=== PATIENT | female | born 1970 | race Caucasian/White ===

== ENCOUNTER 2017-11-27 19:20 | Emergency (ER) | payer OTHER ==
[~2017-11-27] VITALS: Ht 157.5 cm; Wt 108.9 kg
[~2017-11-27 19:20] MED LIST: CIPRO500 MG PO; CIPROFLOXACIN500 M3 OR; CIPROFLOXACIN500 M3 PO; CLONAZEPAM 0.50.5 M1 PO; DAZIDOX10 MG PO; FLAGYL500 MG PO; LEXAPRO20 MG PO; METFORMIN; METFORMIN HCL500 MG PO; OMEPRAZOLE; PRILOSEC20 MG PO; TRAMADOL 50 MG50 MG PO; VICOPROFEN 2001 EACH PO; ZOFRAN4 MG PO; ZYRTEC10 M2 PO
[2017-11-27] MEDS ORDERED: ZYRTEC10 M5 (20:16)
[2017-11-27 20:44] LABS: ABSOLUTE BASOPHILS 0.1 thou/uL (0.0-0.2); ABSOLUTE LYMPHOCYTES 1.8 thou/uL (0.8-5.3); ABSOLUTE NEUTROPHILS 14.4 thou/uL (1.6-8.1); BASOPHILS 0.7 %; EOSINOPHILS 0.1 %; HEMATOCRIT 35.7 % (37.0-47.0); HEMOGLOBIN 11.5 gm/dL (12.0-15.0); LYMPHOCYTES 10.1 %; MCH 27.7 pg (26.0-34.0); MCHC 32.1 g/dL (28.0-37.0); MCV 86.3 fL (80.0-100.0); MONOCYTES 5.9 %; MPV 6.6 fl. (7.2-11.1); NUCLEATED RBCS 0 /100WBC; PLATELET COUNT* 451 thou/uL (150-400); POLYS 83.2 %; RBC 4.14 mil/uL (4.20-5.00); RDW-CV 15.4 % (10.5-14.5); WBC 17.4 thou/uL (4.0-11.0)
[2017-11-27 20:57] LABS: CALCIUM 9.1 mg/dL (8.5-10.1); CREATININE 0.8 mg/dL (0.6-1.3); POTASSIUM 3.9 mmol/L (3.5-5.1)
[2017-11-27 20:58] LABS: URINE BILIRUBIN NEGATIVE (Negative); URINE BLOOD 3+ (Negative); URINE CLARITY CLEAR; URINE COLOR YELLOW; URINE GLUCOSE-RANDOM NEGATIVE (Negative); URINE KETONES 2+ (Negative); URINE LEUKOCYTES-REFLEX 1+ (Negative); URINE NITRITE-REFLEX NEGATIVE (Negative); URINE PROTEIN TRACE (Negative); URINE UROBILINOGEN 0.2 E.U./dl (0.2-1.0)
[2017-11-27 21:01] LABS: ALBUMIN 3.4 g/dL (3.4-5.0); TOTAL BILIRUBIN 0.3 mg/dL (<0.1-1.0); TOTAL PROTEIN 7.9 g/dL (6.4-8.2)
[2017-11-27 21:17] LABS: SQUAMOUS >10 Many /LPF (0-3)
[2017-11-27 21:18] LABS: MUCUS 0-3 Light strn/LPF (None Seen)
[2017-11-27 21:19] LABS: URINE WBC-REFLEX 6-15 Few /HPF (0-5)
[2017-11-27 21:20] LABS: CASTS None Seen /LPF (None Seen); CRYSTALS None Seen /LPF (None Seen); URINE RBC 3-10 Few /HPF (0-2)
[2017-11-27] MEDS ORDERED: FLAGYL500 MG PO (22:23)
[2017-11-27] MEDS ORDERED: CIPRO500 M1 PO (22:23)
[2017-11-27] MEDS ORDERED: TRAMADOL 50 MG50 MG PO (22:23)
[2017-11-27] MEDS ORDERED: PHENERGAN 25 MG25 M1 PO (22:29)
[2017-11-27 22:47] VITALS: BP 148/67
== END 2017-11-27 22:49 | disposition home or self-care (01) ==
LOC: M.ERS 19:20
PROVIDERS: Nurse Practitioner Family
DX: K57.92 Diverticulitis of intestine, part unspecified, without perforation or abscess without bleeding (principal); N39.0 Urinary tract infection, site not specified; F41.9 Anxiety disorder, unspecified; Z88.6 Allergy status to analgesic agent; Z88.0 Allergy status to penicillin

== ENCOUNTER 2019-12-06 22:44 | Emergency (ER) | payer OTHER ==
[~2019-12-06] VITALS: Ht 160 cm; Wt 99.8 kg
[~2019-12-06 22:44] MED LIST changes: +CIPRO500 M1 PO; +PHENERGAN 25 MG25 M1 PO; +ZYRTEC10 M5
[2019-12-06 23:35] LABS: ABSOLUTE BASOPHILS 0.1 thou/uL (0.0-0.2); ABSOLUTE LYMPHOCYTES 1.7 thou/uL (0.8-5.3); ABSOLUTE MONOCYTES 0.3 thou/uL (0.0-1.2); ABSOLUTE NEUTROPHILS 8.8 thou/uL (1.6-8.1); BASOPHILS 0.7 %; EOSINOPHILS 0.2 %; HEMATOCRIT 37.6 % (37.0-47.0); HEMOGLOBIN 12.6 gm/dL (12.0-15.0); LYMPHOCYTES 15.8 %; MCH 29.9 pg (26.0-34.0); MCHC 33.6 g/dL (28.0-37.0); MCV 88.8 fL (80.0-100.0); MONOCYTES 2.9 %; MPV 7.2 fl. (7.2-11.1); NUCLEATED RBCS 0 /100WBC; PLATELET COUNT* 429 thou/uL (150-400); POLYS 80.4 %; RBC 4.23 mil/uL (4.20-5.00); RDW-CV 14.1 % (10.5-14.5); WBC 10.9 thou/uL (4.0-11.0)
[2019-12-06 23:39] LABS: CALCIUM 9.1 mg/dL (8.5-10.1); CREATININE 0.9 mg/dL (0.6-1.3)
[2019-12-06 23:44] LABS: ALBUMIN 3.7 g/dL (3.4-5.0); TOTAL BILIRUBIN 0.2 mg/dL (<0.1-1.0); TOTAL PROTEIN 8.5 g/dL (6.4-8.2)
[2019-12-07 02:11] LABS: URINE BILIRUBIN NEGATIVE (Negative); URINE BLOOD 3+ (Negative); URINE CLARITY CLEAR; URINE COLOR YELLOW; URINE GLUCOSE-RANDOM NEGATIVE (Negative); URINE KETONES 2+ (Negative); URINE LEUKOCYTES-REFLEX NEGATIVE (Negative); URINE NITRITE-REFLEX NEGATIVE (Negative); URINE PROTEIN 2+ (Negative); URINE SPECIFIC GRAVITY >= 1.030 (1.005-1.030); URINE UROBILINOGEN 0.2 E.U./dl (0.2-1.0)
[2019-12-07 02:24] LABS: CASTS None Seen /LPF (None Seen); MUCUS 0-3 Light strn/LPF (None Seen); SQUAMOUS 4-10 Moderate /LPF (0-3)
[2019-12-07 02:25] LABS: URINE RBC >20 Many /HPF (0-2); URINE WBC-REFLEX 0-5 Rare /HPF (0-5)
[2019-12-07 02:26] LABS: CRYSTALS None Seen /LPF (None Seen)
[2019-12-07 03:05] VITALS: BP 139/87
== END 2019-12-07 03:05 | disposition still patient (30) ==
LOC: M.ERS 22:44
PROVIDERS: Emergency Medicine
DX: R42 Dizziness and giddiness (principal); R11.2 Nausea with vomiting, unspecified; Z88.0 Allergy status to penicillin; Z88.6 Allergy status to analgesic agent

== ENCOUNTER → 2020-06-10 | Outpatient (CLI) | payer OTHER | LOC: M.RAD 11:00 → M.NUC 13:00 | PROVIDERS: ATTEND Nurse Practitioner Family | DX: Z12.31 Encounter for screening mammogram for malignant neoplasm of breast (principal); M54.6 Pain in thoracic spine; R11.2 Nausea with vomiting, unspecified ==